=== PATIENT | female | born 1995 | race Caucasian/White ===

== ENCOUNTER 2017-02-10 15:24 | Emergency (ER) | payer MEDICAID, OTHER ==
[~2017-02-10] VITALS: Ht 160 cm; Wt 66.9 kg
[2017-02-10 15:37] VITALS: BP 117/73
--- NOTE | 2017-02-10 16:30 | NUR ---
21F BIB FAMILY C/O VAGINAL ITCHING & INTERMITTENT PAINFUL URINATION WITH RASH TO VAGINAL AREA X 2 WEEKS. DENIES N/V/D; AAOX4 WITH EVEN AND STEADY GAIT; LUNGS CLEAR BL; HR EVEN AND REGULAR; PT DENIES ANY FEVER, CP, SOB, OR COUGH AT THIS TIME; PATIENT STATES PAIN OF 0/10 AT THIS TIME; PATIENT POSITIONED FOR COMFORT; HOB ELEVATED; BEDRAILS UP X2; BED DOWN. ER MD MADE AWARE OF PT STATUS.
--- NOTE | 2017-02-10 16:40 | NUR ---
ER MD DR HAWTHORNE EVALUATING PT AT BEDSIDE.
--- NOTE | 2017-02-10 16:55 | NUR ---
PELVIC EXAM DONE BY DR HAWTHORNE, SENT VAGINAL SPECIMEN TO LAB
[2017-02-10 18:16] VITALS: BP 118/71
--- NOTE | 2017-02-10 18:16 | NUR ---
Patient discharged with v/s stable. Written and verbal after care instructions given and explained. Patient alert, oriented and verbalized understanding of instructions. Ambulatory with steady gait. All questions addressed prior to discharge. ID band removed. Patient advised to follow up with PMD. Rx of MONISTATVANTI CHAFING GEL given. Patient educated on indication of medication including possible reaction and side effects. Opportunity to ask questions provided and answered.
[2017-02-12 08:33] LABS: CHLAMYDIA TRACHOMATIS AMP DNA Negative (Negative)
== END 2017-02-10 18:16 | disposition home or self-care (01) ==
LOC: MED 15:24
DX: L29.3 Anogenital pruritus, unspecified (principal)
CPT/HCPCS: 36415; 86694; 87210; 87491; 87529; 99284

== ENCOUNTER 2018-01-03 22:42 | Emergency (ER) | payer OTHER ==
[~2018-01-03] VITALS: Ht 157.5 cm; Wt 66.2 kg
[2018-01-03 22:45] VITALS: BP 141/93
--- NOTE | 2018-01-03 22:57 | NUR ---
PT AMB TO BED 6 BY MARIA EUGENIA ONTIVEROS
--- NOTE | 2018-01-03 22:57 | NUR ---
PT C/O BURNING WHILE URINATION X 3 DAYS 710 PAIN PT DENIES N/V/D; SKIN IS INTACT, PINK/WARM/DRY; AAOX4, PERRL, WITH EVEN AND STEADY GAIT; LUNGS CLEAR BL, BREATHING UNLABORED; HR EVEN AND REGULAR, BL PERIPHERAL PULSES PRESENT; BS ACTIVE X4, NO TENDERNESS TO PALPATION, NO HEPATOSPLENOMEGALLY PALPATED, RESONANT TO PERCUSSION; PT DENIES ANY FEVER, CP, SOB, OR COUGH AT THIS TIME; PT STATES 10 PAIN AT THIS TIME; VSS; PATIENT POSITIONED FOR COMFORT; HOB ELEVATED; BEDRAILS UP X2; BED DOWN.
[2018-01-03] MEDS ORDERED: KETOROLAC 60 MG/2 ML VIAL IM ONE (23:10)
[2018-01-04 00:22] VITALS: BP 129/88
--- NOTE | 2018-01-04 00:56 | NUR ---
Patient discharged with v/s stable. Written and verbal after care instructions given and explained. Patient alert, oriented and verbalized understanding of instructions. Ambulatory with steady gait. All questions addressed prior to discharge. ID band removed. Patient advised to follow up with PMD. Rx of CIPROFLOXACIN AND MOTRIN AND PYRIDIUM given. Patient educated on indication of medication including possible reaction and side effects. Opportunity to ask questions provided and answered.
== END 2018-01-04 00:22 | disposition home or self-care (01) ==
LOC: MED 22:42
DX: N39.0 Urinary tract infection, site not specified (principal)
CPT/HCPCS: 81002; 81025; 96372; 99283; J1885

== ENCOUNTER 2022-12-24 23:22 | Emergency (ER) | payer OTHER ==
[~2022-12-24] VITALS: Ht 160 cm; Wt 68.0 kg
[2022-12-24 23:23] VITALS: BP 140/90
--- NOTE | 2022-12-24 23:26 | NUR ---
TO LOBBY A/W BED AMBULATORY
--- NOTE | 2022-12-25 01:13 | NUR ---
PT TO BED #3
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
[2022-12-25 02:05] LABS: BASOPHILS # (AUTO) 0.1 K/uL (0.00-0.22); BASOPHILS % (AUTO) 0.7 % (0.0-2.0); EOSINOPHILS # (AUTO) 0.1 K/uL (0-0.4); EOSINOPHILS % (AUTO) 1.7 % (0.0-4.0); HEMATOCRIT 38.5 % (36-48); HEMOGLOBIN 12.8 g/dL (12.0-16.0); LYMPHOCYTES % (AUTO) 36.2 % (20.5-51.1); MEAN CORPUSCULAR HEMOGLOBIN 29 pg (27-31); MEAN CORPUSCULAR HGB CONC 33 g/dL (33-37); MONOCYTES # (AUTO) 0.5 K/uL (0.8-1.0); MONOCYTES % (AUTO) 6.5 % (1.7-9.3); NEUTROPHILS # (AUTO) 4.6 K/uL (1.8-7.7); NEUTROPHILS % (AUTO) 54.9 % (42.2-75.2); PLATELET COUNT (AUTO) 254 K/uL (140-450); RED BLOOD CELL COUNT(AUTO) 4.42 MIL/uL (4.20-5.40); RED CELL DISTRIBUTION WIDTH 13.6 % (11.6-13.7); WHITE BLOOD COUNT (AUTO) 8.4 K/uL (4.8-10.8)
[2022-12-25] MEDS ORDERED: IBUPROFEN 600 MG TAB PO ONE (02:05)
[2022-12-25] MEDS ORDERED: hydrOXYzine PAMOATE 25 MG CAP PO STA (02:05)
[2022-12-25 02:37] LABS: ALBUMIN 4.2 g/dL (3.4-5.0); ANION GAP 14.9 (8-16); ASPARTATE AMINOTRANSFERASE 33 U/L (15-37); CARBON DIOXIDE 25.6 mmol/L (21-32); CHLORIDE 102 mmol/L (98-107); CREATININE 0.8 mg/dL (0.6-1.3); GFR ARICAN-AMERICAN 109 mL/min (>90); GLUCOSE 84 mg/dL (74-106); POTASSIUM 3.5 mmol/L (3.5-5.1); SODIUM SERUM 139 mmol/L (136-145); THYROID STIMULATING HORMONE 5.54 uIU/mL (0.34-3.74); TOTAL BILIRUBIN 0.4 mg/dL (0.0-1.0); UREA NITROGEN, BLOOD 13 mg/dL (7-18)
--- NOTE | 2022-12-25 02:39 | NUR ---
did not administer hydroxyzine due to pt refusing med. Dr. Adame notified
[2022-12-25] MEDS ORDERED: IBUP-1842 PO (03:04)
[2022-12-25] MEDS ORDERED: CYCL-654 PO (03:04)
--- NOTE | 2022-12-25 03:33 | NUR ---
Patient discharged with v/s stable. Written and verbal after care instructions given and explained. Patient alert, oriented and verbalized understanding of instructions. Ambulatory with steady gait. All questions addressed prior to discharge. ID band removed. Patient advised to follow up with PMD. Rx of cyclobenzaprtine HCI and motrin given. Opportunity to ask questions provided and answered.
== END 2022-12-25 03:33 | disposition home or self-care (01) ==
LOC: MED 23:22
DX: F43.9 Reaction to severe stress, unspecified (principal); R07.9 Chest pain, unspecified; R51.9 Headache, unspecified; R94.6 Abnormal results of thyroid function studies; F41.9 Anxiety disorder, unspecified; Z79.899 Other long term (current) drug therapy
CPT/HCPCS: 36415; 80053; 84439; 84443; 84484; 85025; 93005; 99284; Q0177